=== PATIENT | male | born 1950 | race Caucasian/White ===

== ENCOUNTER 2018-11-23 07:17 | Day surgery (SDC) | payer MEDICARE ==
[~2018-11-23] VITALS: Ht 175.3 cm; Wt 96.8 kg
[2018-11-23 07:58] VITALS: BP 188/97; PULSE 70; TEMP 97.7
[2018-11-23] MEDS ORDERED: MULTIPLE VITAMI1 CAP PO (08:09)
[2018-11-23] MEDS ORDERED: BENICAR HCT 12.1 TA1 PO (08:09)
[2018-11-23] MEDS ORDERED: NAPROSYN 2250 MG/TAB PO (08:10)
[2018-11-23] MEDS ORDERED: ALLEGRA ALLERG180 MG PO (08:11)
[2018-11-23] MEDS ORDERED: FISH OIL PO (08:12)
[2018-11-23] MEDS ORDERED: MASON NATURAL1200 MG PO (08:14)
--- NOTE | 2018-11-23 08:39 | NUR ---
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
[2018-11-23 14:05] VITALS: BP 118/56; PULSE 72; TEMP 97.5
--- NOTE | 2018-11-23 14:05 | NUR ---
TO RM 8 PER CART FROM PACU. DROWSY, BUT ANSWERS QUESTIONS COHERENTLY. DRESSING ON RIGHT SHOULDER CLEAN DRY INTACT. RIGHT ARM IN ABDUCTOR SLING. ABLE TO WIGGLE FINGERS A LITTLE. DENIES PAIN OR DISCOMFORT DENIES NAUSEA RECEIVED WATER
[2018-11-23 14:20] VITALS: BP 131/63; PULSE 72
--- NOTE | 2018-11-23 14:20 | NUR ---
RECEIVED WATER AND TAKING SIPS. FAMILY TOOK PRESCRIPTIONS TO BE FILLED.
[2018-11-23 14:35] VITALS: BP 133/73; PULSE 84
--- NOTE | 2018-11-23 14:35 | NUR ---
RECEIVED SUMAN. PUDDING - FED TO PATIENT BY STAFF.
[2018-11-23] MEDS ORDERED: NORCO 325 MG-7.1 TAB PO (14:45)
[2018-11-23] MEDS ORDERED: ROXICODONE 55 MG/TAB PO (14:46)
[2018-11-23 14:50] VITALS: BP 133/64; PULSE 75
--- NOTE | 2018-11-23 14:50 | NUR ---
O2 SAT 98% ON 2L, DC'D O2 RECEIVED MUFFIN.
[2018-11-23 15:15] VITALS: BP 134/66; PULSE 86
--- NOTE | 2018-11-23 15:15 | NUR ---
ATE 100% 1ST MUFFIN AND RECEIVED 2ND MUFFIN.
--- NOTE | 2018-11-23 16:00 | NUR ---
UP AMBULATED TO BATHROOM WITH ASSIST AND TOLERATED WELL.
--- NOTE | 2018-11-23 16:20 | NUR ---
RECEIVED DISCHARGE INSTRUCTIONS AND VERBALIZED UNDERSTANDING. DISCONINUED IV AND INT ASSISTED PATIENT DRESSED RECEIVED AQUACEL DRESSING TO CHANGE DRESSING TOMORROW.
--- NOTE | 2018-11-23 16:30 | NUR ---
DISCHARGED PER WC BY NURSING STAFF TO PRIVATE CAR IN CARE OF SON AND DAUGHTER IN LAW.
== END 2018-11-23 16:44 | disposition home or self-care (01) ==
LOC: SDCO 07:17
DX: S46.011A Strain of muscle(s) and tendon(s) of the rotator cuff of right shoulder, initial encounter (principal); W00.0XXA Fall on same level due to ice and snow, initial encounter; I10 Essential (primary) hypertension; G47.33 Obstructive sleep apnea (adult) (pediatric); Z87.891 Personal history of nicotine dependence; M19.90 Unspecified osteoarthritis, unspecified site; R20.2 Paresthesia of skin; Z85.46 Personal history of malignant neoplasm of prostate; Z90.79 Acquired absence of other genital organ(s); Z90.49 Acquired absence of other specified parts of digestive tract; Z98.1 Arthrodesis status
CPT/HCPCS: A4619; C1713; J0171; J0690; J1100; J1885; J2405; J2704; J2795; J3010; J7120